=== PATIENT | male | born 1990 | race Caucasian/White ===

== ENCOUNTER 2021-04-28 11:42 | Emergency (ER) | payer MEDICAID ==
[~2021-04-28] VITALS: Ht 175.3 cm; Wt 81.0 kg
[~2021-04-28 11:42] MED LIST: HYDR25SU33 RC; IBUP-1986 PO; LIDO20SO PO; METH-360 PO
[2021-04-28 12:17] VITALS: BP 129/84
== END 2021-04-28 13:06 | disposition home or self-care (01) ==
LOC: ER 11:42
DX: J02.9 Acute pharyngitis, unspecified (principal); Z20.822 Contact with and (suspected) exposure to COVID-19; R05 Cough; F12.90 Cannabis use, unspecified, uncomplicated; Z79.899 Other long term (current) drug therapy
CPT/HCPCS: 36415; 99283; U0003; U0005

== ENCOUNTER 2024-10-18 09:50 | Inpatient (IN) | payer BC, MEDICAID ==
[~2024-10-18] VITALS: Ht 175.3 cm; Wt 77.9 kg
[2024-10-18 10:39] LABS: BASOPHILS % (AUTO) 0.6 % (0-1); EOSINOPHILS % (AUTO) 0.3 % (0-6); HEMATOCRIT 46.5 % (42.0-52.0); HEMOGLOBIN 15.8 g/dl (14.0-17.9); LYMPHOCYTES # (AUTO) 1.4 X10'3 (1.1-4.8); LYMPHOCYTES % (AUTO) 16.3 % (21-51); MEAN CORPUSCULAR HEMOGLOBIN 29.8 PG (27.0-31.0); MEAN CORPUSCULAR HGB CONC 33.9 g/dL (33.0-36.5); MONOCYTES # (AUTO) 0.7 X10'3 (0-0.9); MONOCYTES % (AUTO) 7.8 % (2-12); NEUTROPHILS # (AUTO) 6.5 X10'3 (1.8-7.7); PLATELET COUNT 298 X10'3 (140-440); RED BLOOD COUNT 5.28 X10'6 (4.70-6.10); RED CELL DISTRIBUTION WIDTH 13.5 % (11.5-14.5); WHITE BLOOD COUNT 8.7 X10'3 (4.5-11.0)
[2024-10-18 11:08] LABS: ANION GAP 5 (8-16); BLOOD UREA NITROGEN 14 MG/DL (7-18); BUN/CREATININE RATIO 18.9 (10.0-20.0); CALCIUM 8.8 MG/DL (8.5-10.1); CHLORIDE 108 MMOL/L (99-107); CREATININE 0.74 MG/DL (0.60-1.10); ETHANOL < 10 MG/DL (<10); GLUCOSE 63 MG/DL (70-104); POTASSIUM 4.4 MMOL/L (3.5-5.1); SODIUM 145 MMOL/L (135-145); THYROID STIMULATING HORMONE 1.43 ulU/ml (0.34-4.50); TOTAL CARBON DIOXIDE 32.1 MMOL/L (24-32); eCRCL 135 ML/MIN; eGFR > 90 ML/MIN
[2024-10-18] MEDS: TETanus/Pertussis (Acell)/Diphther VAC/PF (Tdap-Adult) 0.5ml syringe IMVAC ONE (11:40)
[2024-10-18] MEDS: diphenhydrAMINE 50 mg/ml inj IV ONE (11:41)
[2024-10-18] MEDS: ondansetron/PF 4mg/2ml inj IV ONE (11:41)
[2024-10-18] MEDS: morphine 4 MG/ML inj SYRINge IV ONE (11:43)
[2024-10-18] MEDS: clindamycin 300mg/D5W 50mL 50 ML IV SCH (12:00)
[2024-10-18] MEDS: OLANZapine 5mg rapidly disint. tablet PO ONE (12:47)
[2024-10-18 15:03] LABS: BILIRUBIN,URINE NEGATIVE (Neg); CLARITY,URINE CLEAR (Clear); COLOR,URINE YELLOW (Yellow); GLUCOSE, URINE NEGATIVE (Neg); KETONES,URINE NEGATIVE (Neg); LEUKOCYTE ESTERASE ,URINE NEGATIVE (Neg); NITRITES, URINE NEGATIVE (Neg); OCCULT BLOOD,URINE NEGATIVE (Neg); PH,URINE 6.5 (4.8-8.0); PROTEIN,URINE NEGATIVE (Neg); UROBILINOGEN,URINE 0.2 E.U/dL (0.2-1.0)
[2024-10-18 15:06] LABS: UA COLLECTION TYPE NON-SPECIFIED
[2024-10-18 15:10] LABS: URINE AMPHETAMINE SCREEN NEGATIVE (Neg); URINE BARBITUATE SCREEN NEGATIVE (Neg); URINE BENZODIAZEPINES SCREEN NEGATIVE (Neg); URINE CANNABINOID SCREEN POSITIVE (Neg); URINE COCAINE SCREEN NEGATIVE (Neg); URINE METHADONE SCREEN NEGATIVE (Neg); URINE OPIATE SCREEN POSITIVE (Neg); URINE PHENCYCLIDINE SCREEN NEGATIVE (Neg)
[2024-10-19 08:21] LABS: ALBUMIN 3.6 G/DL (3.4-5.0); ANION GAP 8 (8-16); BILIRUBIN,TOTAL 0.5 MG/DL (0.1-1.0); BLOOD UREA NITROGEN 19 MG/DL (7-18); BUN/CREATININE RATIO 22.6 (10.0-20.0); CALCIUM 8.7 MG/DL (8.5-10.1); CHLORIDE 107 MMOL/L (99-107); CREATININE 0.84 MG/DL (0.60-1.10); GLUCOSE 94 MG/DL (70-104); POTASSIUM 4.4 MMOL/L (3.5-5.1); SODIUM 142 MMOL/L (135-145); TOTAL CARBON DIOXIDE 26.6 MMOL/L (24-32); TOTAL PROTEIN 6.3 G/DL (6.4-8.2); eCRCL 119 ML/MIN; eGFR > 90 ML/MIN
[2024-10-19 08:22] LABS: ALANINE AMINOTRANSFERASE 16 U/L (12-78); ALBUMIN/GLOBULIN RATIO 1.3 (1.1-1.5); ALKALINE PHOSPHATASE 56 IU/L (46-116); ASPARTATE AMINO TRANSFERASE 12 U/L (10-37)
[2024-10-19] MEDS: LORazepam 1 MG tablet PO ONE (16:03)
[2024-10-19] MEDS: diphenhydrAMINE 25mg capsule PO ONE (16:03)
[2024-10-19] MEDS ORDERED: mag hydrox/Alum hydrox/simeth 30ml oral suspension PO PRN ×2 (22:45)
[2024-10-19] MEDS ORDERED: magnesium hydroxide 30ml (MOM) UD suspension PO PRN ×2 (22:45)
[2024-10-19] MEDS ORDERED: acetaminophen 325mg tablet PO PRN ×5 (22:45→23:00)
[2024-10-19] MEDS ORDERED: loperamide 2mg capsule PO PRN (22:45)
[2024-10-20] MEDS ORDERED: NICOTINE POLACRILEX 2 MG LOZENGE BC PRN (01:10)
[2024-10-20] MEDS: traZODone 50mg tablet PO ONE (01:30)
[2024-10-20 07:00] VITALS: RESP 16; O2SAT 97
[2024-10-20] MEDS: ibuprofen 200mg tablet PO SCH (07:41)
[2024-10-20] MEDS: nicotine 21mg patch - 24 hr TD SCH (07:42)
[2024-10-20 08:00] VITALS: BP 108/72; PULSE 65; RESP 16; TEMP 97.7; O2SAT 97
[2024-10-20 08:18] LABS: CHOL/HDL RATIO 3.4 (0.00-4.99); CHOLESTEROL 154 MG/DL (0-200); HDL CHOLESTEROL 45 MG/DL (35-60); LDL CHOLESTEROL 92 MG/DL (50-100); TRIGLYCERIDES 58 MG/DL (20-135)
[2024-10-20] MEDS: LORazepam 1 MG tablet PO ONE (15:13)
[2024-10-20 19:00] VITALS: RESP 20; O2SAT 99
[2024-10-20 20:00] VITALS: BP 145/84; PULSE 66; RESP 20; TEMP 97.9; O2SAT 99
[2024-10-20] MEDS: aripiprazole 5mg tablet PO SCH (20:45)
[2024-10-20] MEDS: traZODone 50mg tablet PO PRN (21:48)
[2024-10-20] MEDS: acetaminophen 325mg tablet PO PRN (21:48)
[2024-10-20] MEDS: hydrOXYzine 25 MG tablet PO PRN (21:48)
[2024-10-21 07:30] VITALS: BP 116/78; PULSE 69; RESP 14; TEMP 97.4; O2SAT 100
[2024-10-21] MEDS: HYDROcodone/acetaminophen 5mg/325mg tablet PO PRN (16:13)
[2024-10-21 19:00] VITALS: RESP 18; O2SAT 99
[2024-10-21 20:00] VITALS: BP 127/91; PULSE 91; RESP 18; TEMP 98.5; O2SAT 99
[2024-10-21] MEDS: aripiprazole 5mg tablet PO SCH (20:17)
[2024-10-21] MEDS: benzocaine (Anbesol) 12ml bottle MM PRN (20:20)
[2024-10-22 07:30] VITALS: BP 128/94; PULSE 72; RESP 16; TEMP 97.8; O2SAT 100
[2024-10-22 19:00] VITALS: RESP 16; O2SAT 98
[2024-10-22 19:12] VITALS: BP 145/98; PULSE 91; RESP 16; TEMP 99.1; O2SAT 98
[2024-10-22] MEDS: aripiprazole 10MG tablet PO SCH (20:07)
[2024-10-23 07:30] VITALS: BP 129/82; PULSE 78; RESP 16; TEMP 97.7; O2SAT 99
[2024-10-23 19:19] VITALS: RESP 17; O2SAT 99
[2024-10-23 20:00] VITALS: BP 146/99; PULSE 92; RESP 17; TEMP 97.7; O2SAT 99
[2024-10-23 22:17] VITALS: BP 131/101
[2024-10-24 07:30] VITALS: BP 95/63; PULSE 71; RESP 16; TEMP 97.7; O2SAT 99
[2024-10-24 19:00] VITALS: RESP 18; O2SAT 98
[2024-10-24 20:00] VITALS: BP 135/99; PULSE 108; RESP 18; TEMP 98.8; O2SAT 98
[2024-10-25 07:22] VITALS: BP 129/90; PULSE 74; RESP 18; TEMP 98; O2SAT 98
[2024-10-25 08:00] VITALS: RESP 18; O2SAT 98
[2024-10-25 19:00] VITALS: RESP 18; O2SAT 100
[2024-10-25 20:14] VITALS: BP 129/90; PULSE 88; RESP 18; TEMP 98.5; O2SAT 98
[2024-10-26 07:52] VITALS: BP 117/78; PULSE 76; RESP 14; TEMP 98.1; O2SAT 98
[2024-10-26 08:00] VITALS: RESP 14; O2SAT 98
[2024-10-26] MEDS ORDERED: HYDR-3686 PO (13:58)
[2024-10-26] MEDS ORDERED: TRAZ-251 PO (13:58)
[2024-10-26] MEDS ORDERED: ARIP10TA87 PO (13:58)
[2024-10-26 19:00] VITALS: RESP 18; O2SAT 97
[2024-10-26 20:00] VITALS: BP 141/88; PULSE 96; RESP 18; TEMP 98.4; O2SAT 97
[2024-10-27 07:00] VITALS: RESP 16; O2SAT 98
[2024-10-27 08:00] VITALS: BP 134/78; PULSE 67; RESP 16; TEMP 97.4; O2SAT 98
[2024-10-27 19:00] VITALS: RESP 15; O2SAT 98
[2024-10-27 20:38] VITALS: BP 121/85; PULSE 98; RESP 15; TEMP 98.6; O2SAT 98
[2024-10-28 07:30] VITALS: BP 122/90; PULSE 82; RESP 12; RESP 16; TEMP 98.6; O2SAT 99
[2024-10-28 08:29] VITALS: RESP 16
== END 2024-10-28 09:00 | disposition home or self-care (01) | DRG 885 ==
LOC: ER 09:50 → UNDOADMIN 10-19 17:00 → ADULT MH 10-19 17:00
PROVIDERS: ADMIT Psychiatry & Neurology Psychiatry; ATTEND Psychiatry & Neurology Psychiatry
DX: F20.9 Schizophrenia, unspecified (principal); R45.851 Suicidal ideations; Z59.02 Unsheltered homelessness; F31.9 Bipolar disorder, unspecified; F41.9 Anxiety disorder, unspecified; F60.2 Antisocial personality disorder; G47.00 Insomnia, unspecified; Z20.822 Contact with and (suspected) exposure to COVID-19; F14.159 Cocaine abuse with cocaine-induced psychotic disorder, unspecified; K64.9 Unspecified hemorrhoids; F17.200 Nicotine dependence, unspecified, uncomplicated; T21.22XA Burn of second degree of abdominal wall, initial encounter; T21.25XA Burn of second degree of buttock, initial encounter; Z91.148 Patient's other noncompliance with medication regimen for other reason; Z91.018 Allergy to other foods; X11.8XXA Contact with other hot tap-water, initial encounter; Y93.89 Activity, other specified; Y92.89 Other specified places as the place of occurrence of the external cause; Y99.8 Other external cause status
CPT/HCPCS: 36415; 71045; 72100; 80048; 80053; 80061; 80305; 80320; 81003; 84443; 85025; 87081; 87811; 90471; 90715; 96365; 96375; 99285; A6212; A6213; A6223; A6253; A6258; A6402; A6446; A6449; J1200; J2270; J2405; J3490; Q0163; Q0177